=== PATIENT | female | born 1980 | race American Indian/Alaskan Native ===

== ENCOUNTER 2017-09-30 13:42 | Emergency (ER) | payer SELFPAY ==
[2017-09-30 13:56] VITALS: TEMP 98.7
--- NOTE | 2017-09-30 14:40 | RAD ---
HISTORY: cough COMPARISON: No prior. TECHNIQUE: Chest PA and lateral FINDINGS: LUNGS: No active pulmonary disease. PLEURA: No significant pleural effusion identified. No pneumothorax apparent. CARDIOVASCULAR: Normal. OSSEOUS STRUCTURES: No significant abnormalities. VISUALIZED UPPER ABDOMEN: Normal. OTHER FINDINGS: None. IMPRESSION: No active disease.
[2017-09-30] MEDS ORDERED: guaiFENesin 200 mg/10 ml Syrup UD PO STA (14:51)
--- NOTE | 2017-09-30 14:51 | ED PDOC ---
Arrival/HPI - General Chief Complaint: Cough, Cold, Congestion Time Seen by Provider: 09/30/17 14:07 Historian: Patient - History of Present Illness Narrative History of Present Illness (Text): 09/30/17 14:48 37yo female present with two weeks history of nonproductive cough, nasal congestion. She denies fever, chills, SOB, chest pain, sick contact, any other complaint. Past Medical History - Provider Review Nursing Documentation Reviewed: Yes - Cardiac Hx Cardiac Disorders: No - Pulmonary Hx Respiratory Disorders: No - Neurological Hx Neurological Disorder: Yes Hx Migraine: Yes - HEENT Hx HEENT Disorder: No - Renal Hx Renal Disorder: No - Endocrine/Metabolic Hx Endocrine Disorders: No - Hematological/Oncological Hx Blood Disorders: No - Integumentary Hx Dermatological Disorder: No - Musculoskeletal/Rheumatological Hx Musculoskeletal Disorders: No - Gastrointestinal Hx Gastrointestinal Disorders: No - Genitourinary/Gynecological Hx Genitourinary Disorders: No - Psychiatric Hx Psychophysiologic Disorder: No Hx Substance Use: No - Surgical History Other/Comment: Left Foot surgery 2006 - Anesthesia Hx Anesthesia: No Family/Social History - Physician Review Nursing Documentation Reviewed: Yes Family/Social History: Unknown Family HX Smoking Status: Never Smoked Hx Alcohol Use: Yes Frequency of alcohol use: Socially Hx Substance Use: No Allergies/Home Meds Allergies/Adverse Reactions: Allergies Penicillins Allergy (Verified 09/30/17 13:57) ANAPHYLAXIS Home Medications: Home Meds Medication Instructions Recorded Confirmed Naproxen 500 mg PO BID PRN 09/30/17 09/30/17 Review of Systems - Physician Review All systems were reviewed & negative as marked: Yes - Review of Systems Constitutional: Normal Eyes: Normal ENT: Sinus Congestion Respiratory: Cough, Sputum. absent: SOB, Wheezing Cardiovascular: Normal Gastrointestinal: Normal Genitourinary Female: Normal Musculoskeletal: Normal Skin: Normal Neurological: Normal Endocrine: Normal Hemo/Lymphatic: Normal Psychiatric: Normal Physical Exam Vital Signs Reviewed: Yes Vital Signs Temp Pulse Resp BP Pulse Ox 09/30/17 15:01 95 H 16 132/87 100 09/30/17 13:51 98.7 F 108 H 97 H 139/88 98 Temperature: Afebrile Blood Pressure: Normal Pulse: Regular Respiratory Rate: Normal Appearance: Positive for: Well-Appearing, Non-Toxic, Comfortable Pain Distress: None Mental Status: Positive for: Alert and Oriented X 3 - Systems Exam Head: Present: Atraumatic, Normocephalic Pupils: Present: PERRL Extroacular Muscles: Present: EOMI Conjunctiva: Present: Normal Mouth: Present: Moist Mucous Membranes Nose (Internal): Present: Boggy (b/l) Neck: Present: Normal Range of Motion Respiratory/Chest: Present: Clear to Auscultation, Good Air Exchange. No: Respiratory Distress, Accessory Muscle Use, Wheezes, Decreased Breath Sounds, Rales, Retracting, Rhonchi, Tachypneic Cardiovascular: Present: Regular Rate and Rhythm, Normal S1, S2. No: Murmurs Abdomen: Present: Normal Bowel Sounds. No: Tenderness, Distention, Peritoneal Signs Back: Present: Normal Inspection Upper Extremity: Present: Normal Inspection. No: Cyanosis, Edema Lower Extremity: Present: Normal Inspection. No: Edema Neurological: Present: GCS=15, CN II-XII Intact, Speech Normal Skin: Present: Warm, Dry, Normal Color. No: Rashes Psychiatric: Present: Alert, Oriented x 3, Normal Insight, Normal Concentration Medical Decision Making ED Course and Treatment: 09/30/17 19:45 PT was hemodynamically stable. comfortable and in no distress CXR was negative Result was DW the pt and she was DC home with antitussive and Zpack for her URI complaint. referred to the clinic. TRT ED for any new or worsening symptoms. - RAD Interpretation Radiology Orders: 09/30/17 14:09 CHEST TWO VIEWS (PA/LAT) [RAD] Stat - Medication Orders Current Medication Orders: Discontinued Medications Azithromycin (Zithromax) 500 mg PO STAT STA PRN Reason: Protocol Stop: 09/30/17 14:51 Last Admin: 09/30/17 15:01 Dose: 500 mg Guaifenesin (Robitussin) 200 mg PO Q4H STA Stop: 09/30/17 14:52 Last Admin: 09/30/17 15:00 Dose: 200 mg Disposition/Present on Arrival - Present on Arrival Any Indicators Present on Arrival: No History of DVT/PE: No History of Uncontrolled Diabetes: No Urinary Catheter: No History of Decub. Ulcer: No History Surgical Site Infection Following: None - Disposition Have Diagnosis and Disposition been Completed?: Yes Diagnosis: URI (upper respiratory infection) Disposition: HOME/ ROUTINE Disposition Time: 14:50 Patient Plan: Discharge Condition: STABLE Discharge Instructions (ExitCare): Upper Respiratory Infection (ED) Additional Instructions: Follow up with your doctor/clinic Drink plenty of fluid and rest Return to ED for any new or worsening symptoms Prescriptions: Azithromycin [Zithromax] 250 mg PO DAILY #4 tab Benzonatate [Tessalon Perle] 100 mg PO TID #20 capsule Referrals: [facility] at [facility] [place] [Outside] - Follow up with primary Forms: [employer] ([employer])
[2017-09-30 15:03] VITALS: BP 132/87; PULSE 95; RESP 16; O2SAT 100
== END 2017-09-30 15:03 | disposition home or self-care (01) ==
LOC: ED 13:42
DX: J06.9 Acute upper respiratory infection, unspecified (principal); Z88.0 Allergy status to penicillin

== ENCOUNTER 2018-11-27 16:59 | Emergency (ER) | payer SELFPAY ==
[2018-11-27 17:01] VITALS: BMI 33.0
[2018-11-27 17:05] VITALS: RESP 18; TEMP 98.5
[2018-11-27] MEDS ORDERED: Sodium Chloride 0.9% 1,000 ML IV STA (17:23)
[2018-11-27 18:10] LABS: PH,URINE 6.5 (4.7-8.0); URINE BILIRUBIN NEGATIVE (NEGATIVE); URINE BLOOD NEGATIVE (NEGATIVE); URINE GLUCOSE (UA) NEGATIVE (NEGATIVE); URINE LEUKOCYTE ESTERASE NEGATIVE Leu/uL (NEGATIVE); URINE PROTEIN NEGATIVE mg/dL (<30 mg/dL); URINE UROBILINOGEN 0.2 E.U./dL (<1 E.U./dL)
[2018-11-27 18:16] LABS: URINE APPEARANCE CLEAR (CLEAR); URINE COLOR YELLOW (YELLOW)
[2018-11-27 18:20] LABS: BASO # 0.02 K/mm3 (0.0-2.0); BASO % 0.2 % (0.0-3.0); EOS # 0.1 (0.0-0.7); EOS % 0.9 % (1.5-5.0); HEMOGLOBIN 12.1 g/dL (12.0-16.0); LYMPH # 3.8 (1.2-3.4); LYMPH % 38.1 % (22.0-35.0); MEAN CELL VOLUME 69.8 fl (80.0-105.0); MEAN CORPUSCULAR HEMOGLOBIN 21.3 pg (25.0-35.0); MEAN CORPUSCULAR HGB CONC 30.6 g/dl (31.0-37.0); MEAN PLATELET VOLUME 10.6 fl (7.0-11.0); MONO # 0.5 (0.1-0.6); RBC 5.67 10^6/uL (3.5-6.1); RED CELL DISTRIBUTION WIDTH 16.2 % (11.5-14.5); WHITE BLOOD COUNT 10.1 10^3/uL (4.5-11.0)
[2018-11-27 18:29] LABS: INR 1.09; PARTIAL THROMBOPLASTIN TIME 36.9 Seconds (26.9-38.3); PROTHROMBIN TIME 12.1 SECONDS (9.4-12.5)
[2018-11-27 18:55] LABS: ALB/GLOB RATIO 1.3 (1.1-1.8); ALBUMIN 4.8 g/dL (3.0-4.8); ALT/SGPT 27 U/L (7-56); AST/SGOT 35 U/L (14-36); BLOOD UREA NITROGEN 10 mg/dL (7-21); CALCIUM 9.8 mg/dL (8.4-10.5); GFR NON-AFRICAN AMERICAN > 60; LIPASE 74 U/L (23-300)
[2018-11-27] MEDS ORDERED: Iohexol 350 MG/100 ML VIAL ONE (19:03)
--- NOTE | 2018-11-27 19:49 | ED PDOC ---
Arrival/HPI - General Chief Complaint: Abdominal Pain Time Seen by Provider: 11/27/18 17:00 Historian: Patient - History of Present Illness Narrative History of Present Illness (Text): 11/27/18 19:33 38 y/o female with no significant PMH presents to the ED c/o epigastric abdominal pain x 4 days. Patient has recently had a URI, with associated dry cough and congestion. Saw her primary Dr. Lacey 4 days ago when she developed this pain, and was prescribed azithromycin and told it was most likely gastroenteritis. Taking medication as prescribed. Pain has now become constant, described as a burning. Unchanged with eating or exertion. Decreased PO intake. Last BM this morning, brown, soft. LMP 2 weeks ago. Denies fevers, chills, nausea, vomiting, back pain, urinary symptoms, headache, dizziness, palpitations, or any other associated symptoms. Past Medical History - Infectious Disease Hx of Infectious Diseases: None - Cardiac Hx Cardiac Disorders: No - Pulmonary Hx Respiratory Disorders: No - Neurological Hx Neurological Disorder: Yes Hx Migraine: Yes - HEENT Hx HEENT Disorder: No - Renal Hx Renal Disorder: No - Endocrine/Metabolic Hx Endocrine Disorders: No - Hematological/Oncological Hx Blood Disorders: No - Integumentary Hx Dermatological Disorder: No - Musculoskeletal/Rheumatological Hx Musculoskeletal Disorders: No - Gastrointestinal Hx Gastrointestinal Disorders: No - Genitourinary/Gynecological Hx Genitourinary Disorders: No - Psychiatric Hx Psychophysiologic Disorder: No Hx Substance Use: No - Surgical History Other/Comment: Left Foot surgery 2006 - Anesthesia Hx Anesthesia: No Hx Anesthesia Reactions: No Hx Malignant Hyperthermia: No Family/Social History Family/Social History: No Known Family HX Smoking Status: Never Smoked Hx Alcohol Use: Yes Hx Substance Use: No Allergies/Home Meds Allergies/Adverse Reactions: Allergies Penicillins Allergy (Verified 09/30/17 13:57) ANAPHYLAXIS Home Medications: Home Meds Medication Instructions Recorded Confirmed Naproxen 500 mg PO BID PRN 09/30/17 09/30/17 Review of Systems - Review of Systems Constitutional: Normal. absent: Fevers Eyes: Normal. absent: Vision Changes ENT: Normal. absent: Sore Throat, Sinus Congestion Respiratory: Normal. absent: SOB, Sputum Cardiovascular: Normal. absent: Chest Pain, Palpitations Gastrointestinal: Abdominal Pain, Appetite Changes. absent: Stool Changes, Nausea, Vomiting Genitourinary Female: Normal. absent: Dysuria, Frequency, Vaginal Bleeding, Vaginal Discharge Musculoskeletal: Normal. absent: Arthralgias, Back Pain, Neck Pain Skin: Normal. absent: Rash Neurological: Normal. absent: Headache, Dizziness Endocrine: Normal Hemo/Lymphatic: Normal Psychiatric: Normal Physical Exam Vital Signs Reviewed: Yes Vital Signs Temp Pulse Resp BP Pulse Ox 11/27/18 16:59 98.5 F 83 18 146/88 99 Temperature: Afebrile Blood Pressure: Normal Pulse: Regular Respiratory Rate: Normal Appearance: Positive for: Well-Appearing, Non-Toxic, Comfortable Pain Distress: None Mental Status: Positive for: Alert and Oriented X 3 - Systems Exam Head: Present: Atraumatic, Normocephalic Pupils: Present: PERRL Extroacular Muscles: Present: EOMI Conjunctiva: Present: Normal Mouth: Present: Moist Mucous Membranes Pharnyx: Present: Normal. No: ERYTHEMA, EXUDATE Nose (Internal): Present: Normal Inspection Neck: Present: Normal Range of Motion Respiratory/Chest: Present: Clear to Auscultation, Good Air Exchange. No: Respiratory Distress, Accessory Muscle Use Cardiovascular: Present: Regular Rate and Rhythm, Normal S1, S2, Peripheal Pulses Present. No: Murmurs Abdomen: Present: Tenderness (epigastric, mild), Normal Bowel Sounds. No: Distention, Peritoneal Signs, Rebound, Guarding Back: Present: Normal Inspection. No: CVA Tenderness Upper Extremity: Present: Normal Inspection, Normal ROM, NORMAL PULSES, Neurovascularly Intact, Capillary Refill < 2s. No: Cyanosis, Edema, Temperature Abnormalties Lower Extremity: Present: Normal Inspection, NORMAL PULSES, Normal ROM, Neurovascularly Intact, Capillary Refill < 2 s. No: Edema, Temperature Abnormalties Neurological: Present: GCS=15, CN II-XII Intact, Speech Normal, Normal Sensory Function, Gait Normal Skin: Present: Warm, Dry, Normal Color. No: Rashes Lymphatic: No: Cervical Adenopathy Psychiatric: Present: Alert, Oriented x 3, Normal Insight, Normal Concentration, Normal Affect, Normal Mood Medical Decision Making ED Course and Treatment: Initial Plan: * Bloodwork * Troponin * UA, culture * EKG * CXR * CT Abd/Pelvis with IV contrast * IVF * Pepcid * Toradol On initial exam, patient very well appearing resting comfortably in stretcher in NAD. 1930 Bloodwork unremarkable. No leukocytosis, anemia, or elevated lipase. UA negative for UTI EKG normal, troponin negative CXR shows no active disease or interval change as read by me 20:00 CT shows possible partial bowel obstruction as read by Frederick. Result discussed with patient with plan to admit to hospital for observation. Patient unsure if she wants to stay, may leave AMA. Requesting surgical consult first. 20:25 Spoke with Ashwin, development vice president, who will come evaluate pt in ED. 20:35 Patient refusing recommended pelvic ultrasound. Pt with known history of fibroids. Advised to followup with OBGYN within 2 days. 21:00 After review of imaging, diagnostic studies, and examination at bedside, patient cleared by surgery to followup outpatient with PMD Dr. Lacey with prescription for Pepcid. Patient continues to c/o mild pain, will continue to recommend overnight observation. Patient refusing, states she would like to go home and followup outpatient. Discussed risks of leaving, to include , disability, and worsening of symptoms. Patient will sign out AMA but states she will followup as instructed with Dr. Lacey and GI. The patient is choosing to leave against medical advice. I have personally explained to the patient that choosing to do so may result in permanent bodily harm, disability, or . I have discussed at great length that without further evaluation and monitoring there may be unforeseen circumstances and/or deterioration causing permanent bodily harm or as a result of their choice. The patient is alert, oriented, and shows the mental capacity to make clear decisions regarding the patients health care at this time. The patient continues to wish to leave against medical advice. In light of the patients decision to leave against medical advice, follow-up has been arranged and the patient is aware of the importance to following up as instructed. The patient has been advised that they should return to the emergency room immediately if they change their mind at any time, or if their condition begins to change or worsen in any way. - Lab Interpretations Lab Results: PT 12.1 SECONDS (9.4-12.5) 11/27/18 18:12 INR 1.09 11/27/18 18:12 APTT 36.9 Seconds (26.9-38.3) 11/27/18 18:12 Total Bilirubin 0.2 mg/dL (0.2-1.3) 11/27/18 18:12 AST 35 U/L (14-36) 11/27/18 18:12 ALT 27 U/L (7-56) 11/27/18 18:12 Alkaline Phosphatase 80 U/L (38-126) 11/27/18 18:12 Total Protein 8.6 g/dL (5.8-8.3) H 11/27/18 18:12 Albumin 4.8 g/dL (3.0-4.8) 11/27/18 18:12 Globulin 3.8 gm/dL 11/27/18 18:12 Albumin/Globulin Ratio 1.3 (1.1-1.8) 11/27/18 18:12 Lipase 74 U/L (23-300) 11/27/18 18:12 Urine Color Yellow (YELLOW) 11/27/18 18:04 Urine Appearance Clear (CLEAR) 11/27/18 18:04 Urine pH 6.5 (4.7-8.0) 11/27/18 18:04 Ur Specific [place] <= 1.005 (1.005-1.035) 11/27/18 18:04 Urine Protein Negative mg/dL (<30 mg/dL) 11/27/18 18:04 Urine Glucose (UA) Negative mg/dL (NEGATIVE) 11/27/18 18:04 Urine Ketones Negative mg/dL (NEGATIVE) 11/27/18 18:04 Urine Blood Negative (NEGATIVE) 11/27/18 18:04 Urine Nitrate Negative (NEGATIVE) 11/27/18 18:04 Urine Bilirubin Negative (NEGATIVE) 11/27/18 18:04 Urine Urobilinogen 0.2 E.U./dL (<1 E.U./dL) 11/27/18 18:04 Ur Leukocyte Esterase Negative Rain/uL (NEGATIVE) 11/27/18 18:04 11/27/18 18:12 11/27/18 18:12 Lab Results 11/27/18 18:12: Troponin I < 0.01 11/27/18 18:12: Sodium 140, Potassium 3.8, Chloride 101, Carbon Dioxide 30, Anion Gap 13, BUN 10, Creatinine 0.7, Est GFR ( Amer) > 60, Est GFR (Non- Af Amer) > 60, Random Glucose 109, Calcium 9.8, Magnesium 2.1, Total Bilirubin 0.2, AST 35, ALT 27, Alkaline Phosphatase 80, Total Protein 8.6 H, Albumin 4.8, Globulin 3.8, Albumin/Globulin Ratio 1.3, Lipase 74 11/27/18 18:12: PT 12.1, INR 1.09, APTT 36.9 11/27/18 18:12: WBC 10.1, RBC 5.67, Hgb 12.1, Hct 39.6, MCV 69.8 L, MCH 21.3 L, MCHC 30.6 L, RDW 16.2 H, Plt Count 342, MPV 10.6, Neut % (Auto) 55.8, Lymph % (Auto) 38.1 H, [place] % (Auto) 5.0, Eos % (Auto) 0.9 L, Baso % (Auto) 0.2, Lymph # (Auto) 3.8 H, [place] # (Auto) 0.5, Eos # (Auto) 0.1, Baso # (Auto) 0.02, Absolute Neuts (auto) 5.64 11/27/18 18:04: Urine Color Yellow, Urine Appearance Clear, Urine pH 6.5, Ur Specific [place] <= 1.005, Urine Protein Negative, Urine Glucose (UA) Negative, Urine Ketones Negative, Urine Blood Negative, Urine Nitrate Negative, Urine Bilirubin Negative, Urine Urobilinogen 0.2, Ur Leukocyte Esterase Negative I have reviewed the lab results: Yes - RAD Interpretation Narrative RAD Interpretations (Text): 11/27/18 20:00 Ct abdomen and pelvis reviewed by radiologist, FINDINGS: LUNG BASES: The lung bases appear clear. No pleural effusions are seen. LIVER: Unremarkable. GALLBLADDER AND BILE DUCTS: The gallbladder appears within normal limits. No radioopaque gallstones are seen. No biliary ductal dilatation is evident. PANCREAS: Unremarkable. SPLEEN: Unremarkable. ADRENAL GLANDS: Unremarkable. KIDNEYS, URETERS, AND BLADDER: The kidneys appear within normal limits. There is no hydronephrosis or hydroureter. No urinary calculi are seen. There is some enlargement of the [place] with a heterogeneous appearance to the uterus suggesting fibroid uterus. Small amount of free fluid is seen within the pelvis. STOMACH AND BOWEL: Unremarkable appearance of the stomach and bowel. Some fluid-filled mildly distended loops of small bowel are seen of the lower abdomen and pelvis raising some suspicion of partial small bowel obstruction or ileus. APPENDIX: No evidence of acute appendicitis on CT examination. PERITONEUM: No free fluid. No free air. LYMPH NODES: No lymphadenopathy is evident. VASCULATURE: No evidence of abdominal aortic aneurysm. BONES: No aggressive appearing osseous lesion. No acute osseous pathology evident. IMPRESSION: Heterogeneous appearance to the uterus with fibroid uterus suspected. Small amount of free fluid within the pelvis. Some fluid-filled distended loops of small bowel within the lower abdomen and pelvis raising the possibility of ileus or partial small bowel obstruction. Close clinical correlation is advised. Correlation with ultrasound of the pelvis suggested. Electronically signed on Nov 27, 2018 7:41:57 PM EST by: Walter Santos M.D., Certified by [facility], Diagnostic Radiology CXR: No active disease, read by vt Radiology Orders: 11/27/18 17:23 ABD & PELVIS IV CONTRAST ONLY [CT] Stat CHEST PORTABLE [RAD] Stat Corporate Strategist: Radiologist - EKG Interpretation EKG Interpretation (Text): 11/28/18 00:27 Rate 67; NSR; Normal Intervals; No STEMI or other signs of acute ischemia Interpreted by ED Physician: Yes Type: 12 lead EKG - Medication Orders Current Medication Orders: Discontinued Medications Famotidine (Pepcid) 20 mg IVP STAT STA Stop: 11/27/18 17:24 Last Admin: 11/27/18 17:47 Dose: 20 mg IVP Administration Document 11/27/18 17:47 FRANCES (Rec: 11/27/18 17:47 [facility] [id number]) Charges for Administration # of IVP Administrations 1 Sodium Chloride (Sodium Chloride 0.9%) 1,000 mls @ 1,000 mls/hr IV .Q1H STA Stop: 11/27/18 18:22 Last Admin: 11/27/18 17:48 Dose: 1,000 mls/hr eMAR Start Stop Document 11/27/18 17:48 FRANCES (Rec: 11/27/18 17:48 FRANCES [id number]) Intravenous Solution Start Date 11/27/18 Start Time 17:48 End Date 11/27/18 End time 18:48 Total Infusion Time 60 Ketorolac Tromethamine (Toradol) 30 mg IVP STAT STA Stop: 11/27/18 18:59 Last Admin: 11/27/18 19:10 Dose: 30 mg MAR Pain Assessment Document 11/27/18 19:10 FRANCES (Rec: 11/27/18 19:10 [facility] [id number]) Pain Reassessment Is this a pain reassessment? No Sleep Is patient sleeping during reassessment? No Presence of Pain Presence of Pain Yes IVP Administration Document 11/27/18 19:10 FRANCES (Rec: 11/27/18 19:10 [facility] [id number]) Charges for Administration # of IVP Administrations 1 Disposition/Present on Arrival - Present on Arrival Any Indicators Present on Arrival: No History of DVT/PE: No History of Uncontrolled Diabetes: No Urinary Catheter: No History of Decub. Ulcer: No History Surgical Site Infection Following: None - Disposition Have Diagnosis and Disposition been Completed?: Yes Diagnosis: Abdominal pain, Fibroid, Abnormal CT of the abdomen Disposition: AGAINST MEDICAL ADVICE Disposition Time: 21:00 Patient Plan: Discharge Condition: GUARDED Discharge Instructions (ExitCare): Small Bowel Obstruction, Acute Abdomen (Belly Pain), Adult (DC), Leaving Against Medical Advice Additional Instructions: Return to ER with new/worsening symptoms or if you wish to be reevaluated Increase fluids [place] diet Followup with Dr. Lacey on Thursday Followup with GI within 2 days Take omeprazole daily Take pepcid every 12 hours as needed Prescriptions: Famotidine [Pepcid] 20 mg PO Q12H PRN #30 tab PRN Reason: reflux Omeprazole 20 mg PO DAILY #30 tab Referrals: Lei Lacey MD [Primary Care Provider] - Follow up with primary Cornel Mcdermott DO [Staff Provider] - Follow up with primary Forms: [employer] (Turkmen)
--- NOTE | 2018-11-27 21:20 | CP.PCM.CON ---
History of Present Illness - History of Present Illness History of Present Illness: Surgery: Dr. Huerta CC: Abd pain HPI: 38F w. pmh of migraines and recent URI, started on z-pack yesterday, presents to ED for evaluation of epigastric pain since Thursday. Pt states that the pain is intermittent. It is unrelated to diet. The pain is described as cramping. Pain is partially relieved with mylanta. Pt denies an N/V/D. She is passing flatus and having normal BM. She denies any changes in appetite. She denies F/C. LMP was 2 weeks ago and described as normal. However she states that as of late, her periods have not been coming as frequently. In ED pt under CT- A/P which showed dilated loops of bowel concerning for ileus vs sbo for which surgery was consulted PMH: migraines PSH: L foot neuroma Meds: Naproxen ALL: PCN Social: No ETOH/tobacco/drugs Fhx: non-contributory Review of Systems - Review of Systems All systems: reviewed and no additional remarkable complaints except (HPI) Past Patient History - Infectious Disease Hx of Infectious Diseases: None - Past Social History Smoking Status: Never Smoked - CARDIAC Hx Cardiac Disorders: No - PULMONARY Hx Respiratory Disorders: No - NEUROLOGICAL Hx Neurological Disorder: Yes Hx Migraine: Yes - HEENT Hx HEENT Problems: No - RENAL Hx Chronic Kidney Disease: No - ENDOCRINE/METABOLIC Hx Endocrine Disorders: No - HEMATOLOGICAL/ONCOLOGICAL Hx Blood Disorders: No - INTEGUMENTARY Hx Dermatological Problems: No - MUSCULOSKELETAL/RHEUMATOLOGICAL Hx Musculoskeletal Disorders: No - GASTROINTESTINAL Hx Gastrointestinal Disorders: No - GENITOURINARY/GYNECOLOGICAL Hx Genitourinary Disorders: No - PSYCHIATRIC Hx Psychophysiologic Disorder: No Hx Substance Use: No - SURGICAL HISTORY Other/Comment: Left Foot surgery 2006 - ANESTHESIA Hx Anesthesia: No Hx Anesthesia Reactions: No Hx Malignant Hyperthermia: No Meds Home Medications: Home Medication List Medication Instructions Recorded Confirmed Type Famotidine [Pepcid] 20 mg PO Q12H PRN #30 tab 11/27/18 Rx Omeprazole 20 mg PO DAILY #30 tab 11/27/18 Rx Allergies/Adverse Reactions: Allergies Allergy/AdvReac Type Severity Reaction Status Date / Time Penicillins Allergy ANAPHYLAXIS Verified 09/30/17 13:57 Physical Exam - Constitutional Appears: Non-toxic, No Acute Distress - Head Exam Head Exam: ATRAUMATIC, NORMOCEPHALIC - Eye Exam Eye Exam: EOMI - ENT Exam ENT Exam: Mucous Membranes Moist - Neck Exam Neck exam: Positive for: Full Rom - Respiratory Exam Respiratory Exam: NORMAL BREATHING PATTERN. absent: Accessory Muscle Use, Re spiratory Distress - GI/Abdominal Exam GI & Abdominal Exam: Soft. absent: Distended, Firm, Guarding, Rebound, Rigid, Tenderness - Extremities Exam Extremities exam: Negative for: calf tenderness, pedal edema - Neurological Exam Neurological exam: Alert, Oriented x3 - Psychiatric Exam Psychiatric exam: Normal Affect, Normal Mood Results - Vital Signs Recent Vital Signs: Last Vital Signs Temp 98.5 F 11/27/18 16:59 Pulse 83 11/27/18 16:59 Resp 18 11/27/18 16:59 BP 146/88 11/27/18 16:59 Pulse Ox 99 11/27/18 16:59 - Labs Result Diagrams: 11/27/18 18:12 11/27/18 18:12 Labs: Laboratory Results - last 24 hr 11/27/18 11/27/18 11/27/18 18:04 18:12 18:12 WBC 10.1 RBC 5.67 Hgb 12.1 Hct 39.6 MCV 69.8 L MCH 21.3 L MCHC 30.6 L RDW 16.2 H Plt Count 342 MPV 10.6 Neut % (Auto) 55.8 Lymph % (Auto) 38.1 H [place] % (Auto) 5.0 Eos % (Auto) 0.9 L Baso % (Auto) 0.2 Lymph # (Auto) 3.8 H [place] # (Auto) 0.5 Eos # (Auto) 0.1 Baso # (Auto) 0.02 Absolute Neuts (auto) 5.64 PT 12.1 INR 1.09 APTT 36.9 Sodium Potassium Chloride Carbon Dioxide Anion Gap BUN Creatinine Est GFR ( Amer) Est GFR (Non-Af Amer) Random Glucose Calcium Magnesium Total Bilirubin AST ALT Alkaline Phosphatase Troponin I Total Protein Albumin Globulin Albumin/Globulin Ratio Lipase Urine Color Yellow Urine Appearance Clear Urine pH 6.5 Ur Specific [place] <= 1.005 Urine Protein Negative Urine Glucose (UA) Negative Urine Ketones Negative Urine Blood Negative Urine Nitrate Negative Urine Bilirubin Negative Urine Urobilinogen 0.2 Ur Leukocyte Esterase Negative 11/27/18 11/27/18 18:12 18:12 WBC RBC Hgb Hct MCV MCH MCHC RDW Plt Count MPV Neut % (Auto) Lymph % (Auto) [place] % (Auto) Eos % (Auto) Baso % (Auto) Lymph # (Auto) [place] # (Auto) Eos # (Auto) Baso # (Auto) Absolute Neuts (auto) PT INR APTT Sodium 140 Potassium 3.8 Chloride 101 Carbon Dioxide 30 Anion Gap 13 BUN 10 Creatinine 0.7 Est GFR ( Amer) > 60 Est GFR (Non-Af Amer) > 60 Random Glucose 109 Calcium 9.8 Magnesium 2.1 Total Bilirubin 0.2 AST 35 ALT 27 Alkaline Phosphatase 80 Troponin I < 0.01 Total Protein 8.6 H Albumin 4.8 Globulin 3.8 Albumin/Globulin Ratio 1.3 Lipase 74 Urine Color Urine Appearance Urine pH Ur Specific [place] Urine Protein Urine Glucose (UA) Urine Ketones Urine Blood Urine Nitrate Urine Bilirubin Urine Urobilinogen Ur Leukocyte Esterase - Imaging and Cardiology CT scan - abdomen Status: Image reviewed by me, Report reviewed by me Assessment & Plan - Assessment and Plan (Free Text) Assessment: 38F w. intermittent epigastric pain likely 2/[address] scan findings do no correlate with current clinical picture -Pt clear for D/C from surgical standpoint -Recommend pepcid 20mg BID -f/u w. PMD -If symptoms worsen, return to ED -d/w attending Chas PGY4
[2018-11-27 22:54] VITALS: BP 135/84; PULSE 76; O2SAT 100
--- NOTE | 2018-11-28 15:15 | RAD ---
Date of service: 11/27/2018 HISTORY: epigastric pain COMPARISON: Comparison chest dated 09/30/2017. FINDINGS: LUNGS: Minor bibasilar atelectasis. PLEURA: No significant pleural effusion identified, no pneumothorax apparent. CARDIOVASCULAR: No aortic atherosclerotic calcification present. Normal cardiac size. No pulmonary vascular congestion. OSSEOUS STRUCTURES: No significant abnormalities. VISUALIZED UPPER ABDOMEN: Normal. OTHER FINDINGS: None. IMPRESSION: Minor bibasilar atelectasis.
--- NOTE | 2018-11-28 18:50 | CT ---
Date of service: 11/27/2018 PROCEDURE: CT Abdomen and Pelvis with contrast HISTORY: epigastric abdominal pain COMPARISON: None. TECHNIQUE: Contrast dose: 100 cc of Omnipaque 350 intravenously. Axial and reformatted coronal and sagittal CT images of the abdomen and pelvis were obtained after IV contrast administration. Radiation dose: Total exam DLP = 731.05 mGy-cm. This CT exam was performed using one or more of the following dose reduction techniques: Automated exposure control, adjustment of the mA and/or kV according to patient size, and/or use of iterative reconstruction technique. FINDINGS: LOWER THORAX: Unremarkable. LIVER: The liver is mildly enlarged. The portal vein is patent. GALLBLADDER AND BILE DUCTS: The gallbladder is distended. No CT evidence of acute cholecystitis or radiodense gallstone. PANCREAS: Unremarkable. No gross lesion or ductal dilatation. SPLEEN: Unremarkable. ADRENALS: Unremarkable. No mass. KIDNEYS AND URETERS: Unremarkable. No hydronephrosis. No solid mass. VASCULATURE: Unremarkable. No aortic aneurysm. No aortic atherosclerotic calcification or mural plaque present. BOWEL: There are slightly dilated small bowel loops demonstrate mild enhancing thick wall raise the suspicious for possible mild enteritis. No evidence of high-grade bowel obstruction. Few colonic diverticulosis are noted without evidence of diverticulitis. No definite evidence of colitis. APPENDIX: No evidence of appendicitis. PERITONEUM: Unremarkable. No free fluid. No free air. LYMPH NODES: Unremarkable. No enlarged lymph nodes. BLADDER: Unremarkable. REPRODUCTIVE: The uterus is heterogeneous likely contains fibroid. There is small amount of free fluid in the pelvis likely physiological. BONES: No acute fracture. OTHER FINDINGS: None. IMPRESSION: No CT evidence of acute cholecystitis pancreatitis or appendicitis. Suspicious for gastric and small bowel wall thickening which may be due to gastroenteritis. Heterogeneous uterus likely contains fibroids. Preliminary report was submitted by [facility].
--- NOTE | 2018-11-28 21:31 | CARD ---
APPROVED REPORT Date of service: 11/27/2018 EKG Measurement Heart [id number] <Conclusion> Normal sinus rhythm Normal ECG
== END 2018-11-27 21:40 | disposition left against medical advice (07) ==
LOC: ED 16:59
DX: R10.13 Epigastric pain (principal); R93.5 Abnormal findings on diagnostic imaging of other abdominal regions, including retroperitoneum; D25.9 Leiomyoma of uterus, unspecified
CPT/HCPCS: 71045; 74177; 80053; 81003; 81025; 83690; 83735; 84484; 85025; 85610; 85730; 87086; 93005; 96361; 96374; 96375; 99283; J1885; J7030; Q9967